=== PATIENT | male | born 1990 | race Caucasian/White ===

== ENCOUNTER 2016-10-22 21:45 | Emergency (ER) | payer BC ==
[~2016-10-22] VITALS: Ht 170.2 cm; Wt 90.7 kg
[2016-10-22 21:50] VITALS: BP 143/83; PULSE 77; RESP 16; TEMP 97.9; O2SAT 98
--- NOTE | 2016-10-22 21:50 | NUR ---
Pt ambulatory to bed 5. Report given to RAMONA Rice.
--- NOTE | 2016-10-22 21:50 | NUR ---
Pt ambulatory, a/o x 4, c/o watery stool since Thursday. Pt denied nausea/vomiting. Pt with intermittent abdominal cramping, however, denied any pain at this time. Pt afebrile, no chills, abdomen soft, non tender, with active bowel sounds. Pt with normal resp effort, no other remarkable symptoms. ER MD to [facility]
--- NOTE | 2016-10-22 22:05 | NUR ---
Dr. Deleon at bedside to examine pt and discuss plan of care.
[2016-10-22 22:54] VITALS: BP 140/85; PULSE 78; RESP 18; TEMP 97.9; O2SAT 99
--- NOTE | 2016-10-22 22:54 | NUR ---
Patient given written and verbal discharge instructions and verbalizes understanding. ER MD discussed with patient the care provided. Patient in stable condition. ID arm band removed. Rx of Lomotil 2.5 mg-0.025mg tab given. Patient educated on pain management and to follow up with PMD. Pain Scale 08/12 Opportunity for questions provided and answered.
== END 2016-10-22 22:54 | disposition home or self-care (01) ==
LOC: SED 21:45
DX: R19.7 Diarrhea, unspecified (principal)
CPT/HCPCS: 99283